=== PATIENT | female | born 1995 | race Caucasian/White ===

== ENCOUNTER 2023-06-02 09:53 | Inpatient (IN) | payer OTHER ==
[~2023-06-02] VITALS: Ht 165.1 cm; Wt 104.8 kg
[2023-06-02 10:45] LABS: BASOPHILS % (AUTO) 0.4 % (0.0-2.0); EOSINOPHILS # (AUTO) 0.1 K/uL (0-0.4); EOSINOPHILS % (AUTO) 0.7 % (0.0-4.0); HEMATOCRIT 36.2 % (36-48); HEMOGLOBIN 11.9 g/dL (12.0-16.0); LYMPHOCYTES # (AUTO) 1.7 K/uL (2.5-16.5); LYMPHOCYTES % (AUTO) 18.2 % (20.5-51.1); MEAN CORPUSCULAR HEMOGLOBIN 26 pg (27-31); MEAN CORPUSCULAR HGB CONC 33 g/dL (33-37); MEAN CORPUSCULAR VOLUME 78.8 fL (80-94); MONOCYTES # (AUTO) 0.7 K/uL (0.8-1.0); MONOCYTES % (AUTO) 7.9 % (1.7-9.3); NEUTROPHILS # (AUTO) 6.6 K/uL (1.8-7.7); NEUTROPHILS % (AUTO) 72.8 % (42.2-75.2); PLATELET COUNT (AUTO) 176 K/uL (140-450); RED CELL DISTRIBUTION WIDTH 16.7 % (11.6-13.7); WHITE BLOOD COUNT (AUTO) 9.1 K/uL (4.8-10.8)
[2023-06-02 10:46] LABS: APPEARANCE,URINE CLEAR (CLEAR); BILIRUBIN,URINE NEGATIVE (NEGATIVE); BLOOD, URINE NEGATIVE (NEGATIVE); LEUKOCYTE ESTERASE ,URINE 1+ (NEGATIVE); NITRITE, URINE NEGATIVE (NEGATIVE); PROTEIN,URINE NEGATIVE (NEGATIVE); UGLUCOSE NEGATIVE (NEGATIVE); UROBILINOGEN,URINE 0.2 EU/dL (0.2 - 1)
[2023-06-02 11:10] LABS: BACTERIA,URINE FEW /HPF (None Seen); RBC,URINE 0-5 /HPF (0-5); SQUAMOUS EPITHELIAL CELL,UR 4-10 (MOD) /LPF (0-3 (FEW)); WBC,URINE 0-5 /HPF (0-5)
[2023-06-02 11:10] LABS: HIV RAPID SCREEN NON-REACTIVE (NON REACTIV)
[2023-06-02 11:13] LABS: COLOR,URINE HAZY (YELLOW)
[2023-06-02] MEDS: LACTATED RINGERS 1,000 ML IV SCH ×3 (11:43→14:32)
[2023-06-02] MEDS ORDERED: MORPHINE PRES FREE 10 MG/10 ML AMP IV ONE (12:03)
[2023-06-02] MEDS ORDERED: ceFAZolin 2,000 MG VIAL ONE (12:11)
[2023-06-02] MEDS ORDERED: oxyCODONE/APAP 5/325 MG 1 TAB TAB PO PRN (12:30)
[2023-06-02] MEDS ORDERED: METHYLERGONOVINE 0.2 MG/ML AMP IM PRN (12:30)
[2023-06-02] MEDS ORDERED: TEMAZEPAM 15 MG CAP PO PRN (12:30)
[2023-06-02] MEDS ORDERED: IBUPROFEN 800 MG TAB PO PRN (12:30)
[2023-06-02 12:34] LABS: INR 0.91 (0.8-1.2); PARTIAL THROMBOPLASTIN TIME 28.6 secs (22-35.6); PROTHROMBIN TIME 9.6 secs (10.8-13.4)
[2023-06-02] MEDS ORDERED: diphenhydrAMINE 50 MG/ML VIAL IVP PRN (13:00)
[2023-06-02] MEDS ORDERED: NALBUPHINE 10 MG/ML AMP IVP PRN (13:00)
[2023-06-02] MEDS ORDERED: ONDANSETRON 4 MG/2 ML VIAL IVP PRN (13:00)
[2023-06-02] MEDS ORDERED: NALOXONE 0.4 MG/ML VIAL IVP PRN ×3 (13:00)
[2023-06-02] MEDS ORDERED: METOCLOPRAMIDE 10 MG/2 ML INJ VIAL IVP PRN (13:03)
[2023-06-02] MEDS ORDERED: OXYTOCIN 20 UNITS/LR PREMIX 1,000 ML IV ONE ×2 (13:37→16:58)
[2023-06-02 14:20] VITALS: BP 116/71; PULSE 86; TEMP 97.8
[2023-06-02] MEDS ORDERED: KETOROLAC 30 MG/ML VIAL IM/IVP SCH (18:00)
[2023-06-02] MEDS: KETOROLAC 30 MG/ML VIAL IVP SCH (18:17)
[2023-06-02] MEDS: OXYTOCIN 20 UNITS in LACTATED RINGERS 1,000 ML IV SCH (18:19)
[2023-06-02] MEDS: DOCUSATE SOD/SENNA 50/8.6 MG 1 TAB PO SCH (21:00)
[2023-06-03] MEDS: KETOROLAC 30 MG/ML VIAL IVP SCH ×2 (00:01→05:54)
[2023-06-03] MEDS ORDERED: OXYTOCIN 20 UNITS/LR PREMIX 1,000 ML IV ONE (01:49)
[2023-06-03] MEDS: OXYTOCIN 20 UNITS in LACTATED RINGERS 1,000 ML IV SCH (02:22)
[2023-06-03 07:08] LABS: BASOPHILS % (AUTO) 0.5 % (0.0-2.0); EOSINOPHILS % (AUTO) 0.3 % (0.0-4.0); HEMATOCRIT 28.8 % (36-48); HEMOGLOBIN 9.5 g/dL (12.0-16.0); LYMPHOCYTES # (AUTO) 1.5 K/uL (2.5-16.5); MEAN CORPUSCULAR HEMOGLOBIN 26 pg (27-31); MEAN CORPUSCULAR HGB CONC 33 g/dL (33-37); MEAN CORPUSCULAR VOLUME 79.3 fL (80-94); MONOCYTES # (AUTO) 0.9 K/uL (0.8-1.0); MONOCYTES % (AUTO) 9.6 % (1.7-9.3); NEUTROPHILS # (AUTO) 6.8 K/uL (1.8-7.7); NEUTROPHILS % (AUTO) 73.6 % (42.2-75.2); PLATELET COUNT (AUTO) 146 K/uL (140-450); RED BLOOD CELL COUNT(AUTO) 3.63 MIL/uL (4.20-5.40); RED CELL DISTRIBUTION WIDTH 16.7 % (11.6-13.7); WHITE BLOOD COUNT (AUTO) 9.3 K/uL (4.8-10.8)
[2023-06-03] MEDS: SIMETHICONE 80 MG TAB.CHEW PO PRN ×3 (09:29→18:07)
[2023-06-03] MEDS: oxyCODONE/APAP 5/325 MG 1 TAB TAB PO PRN ×2 (11:56→19:55)
[2023-06-03 12:51] LABS: RAPID PLASMA REAGIN NON-REACTIVE (Non Reactiv)
[2023-06-03] MEDS ORDERED: CAMERA MC ONE (19:38)
[2023-06-03] MEDS: DOCUSATE SOD/SENNA 50/8.6 MG 1 TAB PO SCH (21:13)
[2023-06-04] MEDS: KETOROLAC 30 MG/ML VIAL IVP SCH
[2023-06-04] MEDS: oxyCODONE/APAP 5/325 MG 1 TAB TAB PO PRN ×2 (02:10→14:48)
[2023-06-04] MEDS: SIMETHICONE 80 MG TAB.CHEW PO PRN (09:14)
[2023-06-04] MEDS: DOCUSATE SOD/SENNA 50/8.6 MG 1 TAB PO SCH (20:19)
[2023-06-05] MEDS: oxyCODONE/APAP 5/325 MG 1 TAB TAB PO PRN (03:33)
== END 2023-06-05 06:54 | disposition home or self-care (01) | DRG 539 ==
LOC: MFCC 09:53
PROVIDERS: ADMIT Obstetrics & Gynecology; ATTEND Obstetrics & Gynecology
PROC: 0UB70ZZ Excision of Bilateral Fallopian Tubes, Open Approach (ICD-10-PCS; 2023-06-02)
PROC: 10D00Z1 Extraction of Products of Conception, Low, Open Approach (ICD-10-PCS; principal; 2023-06-02 12:00)
DX: O34.211 Maternal care for low transverse scar from previous cesarean delivery (principal); R71.0 Precipitous drop in hematocrit; Z20.822 Contact with and (suspected) exposure to COVID-19; Z30.2 Encounter for sterilization; Z37.0 Single live birth; Z3A.39 39 weeks gestation of pregnancy
CPT/HCPCS: 36415; 81001; 85025; 85610; 85730; 86592; 86886; 86900; 86901; 87086; 87653-90; 88302; J0690; J1885; J2270; J2405; J2590; J7060; J7120